=== PATIENT | female | born 1975 | race Two or more races ===

== ENCOUNTER 2025-02-01 06:13 | Emergency (ER) | payer MEDICAID, OTHER ==
[~2025-02-01] VITALS: Ht 152.4 cm; Wt 83.3 kg
[2025-02-01 07:39] VITALS: BP 137/78; PULSE 78; RESP 17; TEMP 98.7; O2SAT 97
[2025-02-01] MEDS ORDERED: PRED20TA2 PO (08:17)
[2025-02-01] MEDS ORDERED: CALA1SUS2 EX (08:17)
[2025-02-01] MEDS ORDERED: HYDR-4924 PO (08:17)
--- NOTE | 2025-02-01 08:21 | ED.PDOC ---
History of Present Illness(SKN HPI Comments This is a pleasant 49-year-old female with a pertinent MHx of hypertension, hyperlipidemia, type 2 diabetes who forgot to take her medication this morning and presents with a chief complaint of a skin rash x1 day The rash is located throughout. Patient reports that starting in her inner thighs while she was in [place] vacationing this past weekend Hours later the rash began to spread throughout Therapies tried: None Denies that the rash is painful, just itchy No other complaints or concerns Denies ever having this before Patient denies any fever, cough, difficulty swallowing, or shortness of breath Denies fever chills night sweats nausea vomiting diarrhea Denies persistent loss of appetite nor unintentional weight loss over the past 3 months Denies history of STI Denies cough and cold-like symptoms Denies recent travel Denies sick contact with similar rash Denies new topical creams/lotions/shampoos/detergents Denies noticing any insects Denies bruising bleeding anywhere Denies chronic skin issues or family history of skin issues Chief Complaint: Rash Time Seen by MD: 06:54 History of Present Illness: Nurses Notes, Medications, Allergies Allergies: Coded Allergies: NO KNOWN ALLERGIES (Unverified , 02/01/25) Information Source: Patient Mode of Arrival: Ambulatory Past Medical History PAST MEDICAL HISTORY: Denies Surgical History: Denies all surgeries AQUATICS COORDINATOR History: Denies all AQUATICS COORDINATOR Hx Family History Family History: Reviewed,noncontributory to illness Social History Smoker: Non-Smoker Alcohol: Denies ETOH Use Drugs: Denies Drug Use All Other Systems: Reviewed and Negative (PER HPI) Physical Exam General Appearance: No Apparent Distress, Normal HEENT: Normal ENT Inspection, Pharynx Normal, TMs Normal Neck: Full Range of Motion, Non-Tender, Normal, Normal Inspection Respiratory: Chest Non-Tender, Lungs Clear, No Accessory Muscle Use, No Respiratory Distress, Normal Breath Sounds Cardiovascular: No Edema, No JVD, No Murmur, No Gallop, Normal Peripheral Pulses, Regular Rate/Rhythm Breast Exam: Deferred Gastrointestinal: No Organomegaly, Non Tender, No Pulsatile Mass, Normal Bowel Sounds, Soft Genitalia: Deferred Pelvic: Deferred Rectal: Deferred Extremities: No calf tenderness, Normal capillary refill, Normal inspection, Normal range of motion, Non-tender, No pedal edema Musculoskeletal : Apperance: Normal Neurologic: Alert, car storer II-XII nml as Tested, No Motor Deficits, Normal Affect, Normal Mood, No Sensory Deficits Cerebellar Function: Normal Reflexes: Normal Skin: Dry, Normal Color, Rash, Warm Lymphatic: No Adenopathy Was a procedure done? Was a procedure done?: No Differential Diagnosis (INTG) Differential Diagnosis: Atopic dermatitis, Candidiasis, Tinea, Viral exanthema X-Ray, Labs, Meds, VS Vital Signs Date Time Temp Pulse Resp B/P (MAP) Pulse Ox O2 Delivery O2 Flow Rate FiO2 02/01/25 07:39 98.7 97 17 137/78 (97) 97 98.7 02/01/25 07:39 78 17 97 Room Air 02/01/25 06:23 98.0 85 16 194/102 (132) 99 98.0 X-Ray, Labs, Meds, VS Comment This is a pleasant 49-year-old female with a pertinent MHx of hypertension, hyperlipidemia, type 2 diabetes who forgot to take her medication this morning and presents with a chief complaint of a skin rash x1 day Patient arrives alert and oriented, ABC's intact, afebrile, vital signs stable, saturating well in room air Findings consistent with a anterior pad bite. Symptomatic treatment initiated. No evidence of systemic reaction such as shortness of breath, diffuse rash, drooling, facial/lip swelling. Patient given motrin and tylenol, and observed in the ER. Doubtful for cellulitis given no fever, minimal erythema, minimal warmth. Patient remains with minimal symptoms. Remains hemodynamically stable. Thought safe for discharge home. Tylenol and/or motrin at home for pain. Benadryl for itchiness. Hydrocortisone for itchiness. Ice/cold compress for comfort. Follow-up with primary care doctor in 2-3 days. Return to ER as needed. Additional MDM Review of External, Non-ED records: External records reviewed. Discussion with independent historian (EMS, family) history obtained from the patient/parents (if applicable) at bedside Chronic conditions affecting care: None Social determinants of health affecting care: None Consideration of admission (observation or admission): I considered escalation of care to admission for this patient, however given the reassuring workup, the patient is safe for outpatient management. Discussion with the Radiology: No Tests considered but not performed: Prescription medication considered but not given: Time of 1ST Reevaluation: 08:16 Reevaluation 1ST: Improved Patient Education/Counseling: Diagnosis, Treatment Family Education/Counseling: Diagnosis, Treatment Departure 1 Departure Time of Disposition: 08:17 Impression: Primary Impression: Insect bite Qualified Codes: W57.XXXA - Bitten or stung by nonvenomous insect and other nonvenomous arthropods, initial encounter Disposition: HOME / SELF CARE / HOMELESS Condition: Stable e-Prescriptions Prednisone (Prednisone) 20 Mg Tab 40 MG PO DAILY for 5 Days, #10 TAB 0 Refills Prov: CAROLINA FELDER NP 02/01/25 Calamine-Zinc Oxide (Calamine 8-8 %) 1 Fiona Fiona 1 APPLIC EX UD for 10 Days, #1 BOTTLE 0 Refills Prov: CAROLINA FELDER NP 02/01/25 Hydroxyzine HCl (Hydroxyzine Hydrochloride) 25 Mg Tab 25 MG PO Q8HP PRN for 10 Days, #30 TAB 0 Refills Prov: CAROLINA FELDER NP 02/01/25 Discharged With: Self Critical Care Note Critical Care Time?: No Stability Stability form required: No Heart Score Heart Score: Heart Score Response (Comments) Value History N/A 0 EKG N/A 0 Age N/A 0 Risk Factors N/A 0 Troponin N/A 0 Total 0 CAROLINA FELDER NP Feb 01, 2025 08:21
== END 2025-02-01 08:24 | disposition home or self-care (01) ==
LOC: ER 06:13
DX: T14.8XXA Other injury of unspecified body region, initial encounter (principal); W57.XXXA Bitten or stung by nonvenomous insect and other nonvenomous arthropods, initial encounter; Y93.89 Activity, other specified; Y92.89 Other specified places as the place of occurrence of the external cause; Y99.8 Other external cause status

== ENCOUNTER 2025-04-21 07:32 | Emergency (ER) | payer MEDICAID ==
[~2025-04-21] VITALS: Ht 152.4 cm; Wt 84.1 kg
[~2025-04-21 07:32] MED LIST: CALA1SUS2 EX; HYDR-4924 PO; PRED20TA2 PO
[2025-04-21 07:34] VITALS: BP 188/105; PULSE 84; RESP 16; TEMP 98; O2SAT 96
--- NOTE | 2025-04-21 08:13 | ED.PDOC ---
HPI (NEURO) HPI Comments THIS IS A 49 YEAR-OLD FEMALE, WITH A PMHX OF HTN AND DM, WHO PRESENTS TO THE ED WITH A CHIEF COMPLAINT OF PRESSURE TO THE HEAD WITH ASSOCIATED DIZZINESS FOR X3 DAYS. PATIENT DENIES THIS HAPPENING BEFORE AND DENIES ANY TRAUMA/INJURY TO THE HEAD. PATIENT HAS NO FURTHER COMPLAINTS AT THIS TIME AND OTHERWISE DENIES FURTHER ASSOCIATED SYMPTOMS OF FEVER, CHILLS, BLURRED VISION, OR NASAL CONGESTION. PATIENT IS ALERT, ORIENTED X 4, AND HAS STEADY GAIT. Chief Complaint: Headache Time Seen by MD: 08:06 Reviewed Notes: Nurses Notes, Medications, Allergies Information Source: Patient Mode of Arrival: Ambulatory Severity: Moderate Timing: Days Duration: Since onset Prehospital treatment: None Headache Location: Generalized Circumstances: Spontaneous Associated Signs and Symptoms: Other (HEAD PRESSURE AND DIZZINESS ) Past Medical History PAST MEDICAL HISTORY: DM, HTN, Denies Surgical History: Denies all surgeries QUALITY SYSTEMS SPECIALIST History: Denies all QUALITY SYSTEMS SPECIALIST Hx Family History Family History: Reviewed,noncontributory to illness Social History Smoker: Non-Smoker Alcohol: Denies ETOH Use Drugs: Denies Drug Use Lives In: Home Constitutional: denies: chills, diaphoresis, fatigue, fever, malaise, sweats, weakness, others EENTM: denies: blurred vision, double vision, ear bleeding, ear discharge, ear drainage, ear pain, ear ringing, eye pain, eye redness, hearing loss, mouth pain, mouth swelling, nasal discharge, nose bleeding, nose congestion, nose pain, photophobia, tearing, throat pain, throat swelling, voice changes, others Respiratory: denies: cough, hemoptysis, orthopnea, SOB at rest, shortness of breath, SOB with excertion, stridor, wheezing, others Cardiovascular: denies: chest pain, dizzy spells, diaphoresis, Dyspnea on exertion, edema, irregular heart beat, left arm pain, lightheadedness, palpitations, PND, syncope, others Gastrointestinal: denies: abdomen distended, abdominal pain, blood streaked bowels, constipated, diarrhea, dysphagia, difficulty swallowing, hematemesis, melena, nausea, poor appetite, poor fluid intake, rectal bleeding, rectal pain, vomiting, others Genitourinary: denies: abnormal vagina bleeding, burning, dyspareunia, dysuria, flank pain, frequency, hematuria, incontinence, pain, , vagina discharge, urgency, others Neurological: reports: dizziness, others (HEAD PRESSURE ); denies: fainting, headache, left sided numbness, left sided weakness, numbness, paresthesia, pre- existing deficit, right sided numbness, right sided weakness, seizure, speech problems, tingling, tremors, weakness Musculoskeletal: denies: back pain, gout, joint pain, joint swelling, muscle pain, muscle stiffness, neck pain, others Integumetry: denies: bruises, change in color, change in hair/nails, dryness, laceration, lesions, lumps, rash, wounds, others Allergic/Immunocompromised: denies: Difficulty Healing, Frequent Infections, Hives, Itching, others Hematologic/Lymphatic: denies: anemia, blood clots, easy bleeding, easy bruising, swollen glands, others Endocrine: denies: excessive hunger, excessive sweating, excessive thirst, excessive urination, flushing, intolerance to cold, intolerance to heat, unexplained weight gain, unexplained weight loss, others Psychiatric: denies: anxiety, bipolar disorder, depression, hopeless, panic disorder, schizophrenia, sleepless, suicidal, others All Other Systems: Reviewed and Negative Physical Exam General Appearance: Mild Distress, Normal HEENT: Normal ENT Inspection, Pharynx Normal, TMs Normal Neck: Full Range of Motion, Non-Tender, Normal, Normal Inspection Respiratory: Chest Non-Tender, Lungs Clear, No Accessory Muscle Use, No Respiratory Distress, Normal Breath Sounds Cardiovascular: No Edema, No JVD, No Murmur, No Gallop, Normal Peripheral Pulses, Regular Rate/Rhythm Breast Exam: Deferred Gastrointestinal: No Organomegaly, Non Tender, No Pulsatile Mass, Normal Bowel Sounds, Soft Genitalia: Deferred Pelvic: Deferred Rectal: Deferred Extremities: No calf tenderness, Normal capillary refill, Normal inspection, Normal range of motion, Non-tender, No pedal edema Musculoskeletal : Apperance: Normal Neurologic: Alert, biostatistics professor II-XII nml as Tested, No Motor Deficits, Normal Affect, Normal Mood, No Sensory Deficits Cerebellar Function: Normal Reflexes: Normal Skin: Dry, Normal Color, Warm Peripheral Pulses: 2+ carotid (R), 2+ carotid (L) Lymphatic: No Adenopathy Was a procedure done? Was a procedure done?: No Differential Diagnosis (SZ) Seizure: Closed Head Injury Headache: Cluster, Migraine, Sinusitis X-Ray, Labs, Meds, VS Vital Signs Date Time Temp Pulse Resp B/P (MAP) Pulse Ox O2 Delivery O2 Flow Rate FiO2 04/21/25 07:34 98.0 84 16 188/105 96 98.0 [facility] [id number] [place] [id number] Ph: [phone] DIAGNOSTIC IMAGING Diagnostic Imaging Report : [id number] Signed PATIENT: ALEJANDRA MALDONADO ACCT: [id number] UNIT: [id number] : 1975 LOC: ER ROOM / BED: / AGE / SEX: 49 / F ADM STATUS: REG ER SERVICE 08 ORDERING PHYSICIAN: JOSE YOUNG PROCEDURE(s): HWOCT - HEAD WITHOUT CONTRAST REASON: RIGHT HEAD PAIN AND DIZZINESS ORDER NUMBER(s): [id number], ACCESSION NUMBER(s): [id number] EXAM: CT HEAD WITHOUT CONTRAST HISTORY: RIGHT HEAD PAIN AND DIZZINESS COMPARISON: None TECHNIQUE: Noncontrast axial CT images of the head were performed. Sagittal and coronal reformatted images were obtained. This CT exam was performed using 1 or more of the following dose reduction techniques: Automated exposure control, adjustment of the mA and/or kv according to patient size, or the use of iterative reconstruction techniques. Radiation Dose: CTDI volume is 56.02 mGy. Dose-length product is 896.35 mGy*cm FINDINGS: No intracranial hemorrhage, mass, midline shift, hydrocephalus, or evidence of acute large vessel infarct. Dina cisterna magna versus left posterior fossa arachnoid cyst incidentally noted. There is a small cavum septum pellucidum. The sella is empty. The partially-visualized paranasal sinuses are clear. The bilateral mastoid air cells and middle ear spaces are clear. No cranial fracture or scalp edema. There is right supraorbital scalp scarring. IMPRESSION: 1. No acute intracranial process. 2. Empty sella. 3. Left posterior cranial fossa arachnoid cyst versus asymmetric dina cisterna magna. X-Ray, Labs, Meds, VS Comment EXTERNAL MEDICAL RECORDS REVIEWED: [NONE] INDEPENDENT HISTORIANS: [NONE] SOCIAL DETERMINANTS OF HEALTH: [NONE] LABS ORDERED: NONE REVIEWED AND INTERPRETED RESULTS: NONE IMAGING ORDERED: HEAD CT WITHOUT CONTRAST TREATMENTS ORDERED:PT DECLINED PAIN MEDICATION. PROCEDURES PERFORMED: NONE CRITICAL CARE TIME: NONE I HAVE DISCUSSED THE PATIENT WITH THE ATTENDING PHYSICIAN, DR. HICKS, AND HE AGREES WITH THE PATIENT'S PLAN OF CARE AND DISPOSITION. BASED ON HISTORY OF PRESENT ILLNESS, AND PHYSICAL EXAM, PATIENT WILL BE DISCHARGED HOME. SHARED DECISION MAKING: DISCUSSED WITH PATIENT THAT THEIR WORKUP WAS NORMAL. PATIENT INSTRUCTED TO FOLLOW UP WITH PRIMARY CARE PROVIDER IN 1-2 DAYS FOR RE- EVALUATION OF SYMPTOMS. PATIENT VERBALIZES UNDERSTANDING TO RETURN TO ED FOR NEW OR WORSENING SYMPTOMS OR IF FOLLOW UP WITH PCP CANNOT BE OBTAINED. PATIENT FEELS COMFORTABLE GOING HOME AT THIS TIME. ALL QUESTIONS ADDRESSED AT TIME OF DISCHARGE. Images Reviewed?: Images reviewed and evaluated by me Time of 1ST Reevaluation: 09:05 Reevaluation 1ST: Unchanged Patient Education/Counseling: Diagnosis, Treatment, Need For Follow Up Family Education/Counseling: Diagnosis, Treatment, No Family Present Medical Screening: No EMC Exist At This Time Departure 1 Departure Time of Disposition: 09:05 Impression: Primary Impression: Acute headache Qualified Codes: R51.9 - Headache, unspecified Additional Impressions: Arachnoid cyst Empty sella Disposition: HOME / SELF CARE / HOMELESS Condition: Stable Additional Instructions: FOLLOW-UP WITH PCP IN 1 TO 2 DAYS TO RECHECK. TAKE MEDICATIONS PRESCRIBED. RETURN TO ED FOR ANY NEW OR WORSENING SYMPTOMS. Discharged With: Self Critical Care Note Critical Care Time?: No Stability Stability form required: No Heart Score Heart Score: Heart Score Response (Comments) Value History N/A 0 EKG N/A 0 Age N/A 0 Risk Factors N/A 0 Troponin N/A 0 Total 0 I personally scribed for JOSE YOUNG ([email or web address]) on 04/21/25 at 08:13. Electronically submitted by Leann Arredondo ([email or web address]). I personally scribed for JOSE YOUNG ([email or web address]) on 04/21/25 at 08:55. Electronically submitted by Leann Arredondo ([email or web address]). JOSE YOUNG Apr 21, 2025 08:13
--- NOTE | 2025-04-21 08:38 | DVH ---
EXAM: CT HEAD WITHOUT CONTRAST HISTORY: RIGHT HEAD PAIN AND DIZZINESS COMPARISON: None TECHNIQUE: Noncontrast axial CT images of the head were performed. Sagittal and coronal reformatted i mages were obtained. This CT exam was performed using 1 or more of the following dose reduction techn iques: Automated exposure control, adjustment of the mA and/or kv according to patient size, or the u se of iterative reconstruction techniques. Radiation Dose: CTDI volume is 56.02 mGy. Dose-length product is 896.35 mGy*cm FINDINGS: No intracranial hemorrhage, mass, midline shift, hydrocephalus, or evidence of acute large vessel inf arct. Dina cisterna magna versus left posterior fossa arachnoid cyst incidentally noted. There is a s mall cavum septum pellucidum. The sella is empty. The partially-visualized paranasal sinuses are giovanny r. The bilateral mastoid air cells and middle ear spaces are clear. No cranial fracture or scalp vanessa a. There is right supraorbital scalp scarring. IMPRESSION: 1. No acute intracranial process. 2. Empty sella. 3. Left posterior cranial fossa arachnoid cyst versus asymmetric dina cisterna magna.
== END 2025-04-21 09:11 | disposition home or self-care (01) ==
LOC: ER 07:32
DX: G93.0 Cerebral cysts (principal); R42 Dizziness and giddiness; I10 Essential (primary) hypertension; E11.9 Type 2 diabetes mellitus without complications
CPT/HCPCS: 70450